=== PATIENT | male | born 1980 | race Caucasian/White ===

== ENCOUNTER 2020-04-24 13:10 | Inpatient (IN) | payer MEDICAID, SELFPAY ==
[2020-04-24 13:11] VITALS: BP 117/69; PULSE 115; RESP 22; TEMP 36.6; O2SAT 100; BMI 20.5
--- NOTE | 2020-04-24 13:21 | ED.DCSUM_ITS ---
History of Present Illness Chief Complaint: Substance Abuse Informant: Patient Narrative: Patient presents with EMS and police secondary to withdrawal. He admits to using fentanyl, heroin, and benzos. Last use was last evening. Patient reports feeling anxious and nauseated. He is interested in a detox program. He states it has been a long time since he has been through detox. He does admit to having seizures with previous withdrawal. - Past Medical History (1) Substance abuse Status: Deleted Past Medical History - Allergies and Home Meds Allergies/Adverse Reactions: Allergies No Known Allergies Allergy (Verified 04/24/20 13:13) Prior records reviewed: Yes Smoking Status: Current every day smoker Drugs: Heroin, - - Fentanyl, benzodiazepines - Family History Maternal Family History: Reports: No pertinent history Paternal Family History: Reports: No pertinent history Review of Systems General: Denies: Chills Eyes: Denies: Visual changes - bilaterally ENT: Denies: Bilateral ear pain Cardiovascular: Reports: Palpitations Respiratory: Reports: Dyspnea Gastrointestinal: Reports: Nausea Musculoskeletal: Denies: Extremity Pain Skin: Denies: Abscess Psych: Reports: Anxiety Physical Exam Vital Signs/Narrative: Vital Signs Temp Pulse Resp BP Pulse Ox 04/24/20 13:11 97.9 F 115 H 22 H 117/69 100 Inital Vital Signs reviewed: Yes General: Well nourished, Well developed Head: Normocephalic ENT: Moist mucous membranes Cardiovascular: Tachycardia Respiratory: No distress, CTA bilaterally Abdomen: Soft, Tender - Mild diffuse tenderness palpation., Hypoactive bowel sounds. Negative for: Guarding, Rebound tenderness Extremities: Nontender Skin: Normal color Neurological: Alert, - - No focal neurologic deficits. Psychological: - - Anxious and agitated Diagnostic/Tx/Re-eval Laboratory Results 04/24/20 04/24/20 04/24/20 13:35 13:35 13:35 WBC 7.9 RBC 5.33 Hgb 15.0 Hct 46.1 MCV 86.5 MCH 28.1 MCHC 32.5 RDW Std Deviation 38.0 RDW Coeff of Mary 12.2 Plt Count 300 MPV 9.8 Immature Gran % (Auto) 0.300 Neut % (Auto) 80.8 H Lymph % (Auto) 12.8 L [place] % (Auto) 5.8 Eos % (Auto) 0.0 Baso % (Auto) 0.3 Absolute Neuts (auto) 6.4 Absolute Lymphs (auto) 1.01 Nucleated RBC % 0 Sodium 135 L Potassium 4.5 Chloride 106 Carbon Dioxide 22.0 Anion Gap 7 BUN 19 H Creatinine 0.88 Estim Creat Clear Calc 104.32 Est GFR (MDRD) Af Amer 123 Est GFR (MDRD) Non-Af 102 BUN/Creatinine Ratio 21.5 H Glucose 97 Calcium 9.0 Total Bilirubin 1.20 H AST 37 ALT 46 Alkaline Phosphatase 126 H Total Protein 8.8 H Albumin 3.8 Globulin 5.0 H Albumin/Globulin Ratio 0.8 L Ethyl Alcohol < 3.0 - Medical Decision Making Patient was given 1 mg of IV Ativan. He has been stable while here the emergency room. He did agree to terms of the detox program. I spoke with Dr. Price patient be admitted to the floor. ED Disposition - Plan for ED Patient: Disposition: Acute Care [facility] Diagnosis: Desire for detoxification
[2020-04-24] MEDS: Ondansetron 4 MG/2 ML Vial IV (13:35)
[2020-04-24] MEDS: 0.9% Normal Saline 1,000 ML 999 ML IV (13:35)
[2020-04-24] MEDS: LORazepam 2 MG/ML Syringe 1 MG IV (13:40)
[2020-04-24 13:43] LABS: Absolute Lymphocyte Count 1.01 X10^3/uL (0.83-4.51); Absolute Neutrophil Count 6.4 X10^3/uL (2.0-7.7); Basophil# 0.02 X10^3/uL; Basophil% 0.3 % (0-1); Hematocrit 46.1 % (40-54); Lymphocyte # 1.01 X10^3/ul (4.0); Lymphocyte % 12.8 % (19-41); Mean Corp Hgb Conc 32.5 g/dL (32-36); Mean Corpuscular Hgb 28.1 pg (27.0-32.0); Mean Corpuscular Volume 86.5 fL (80-94); Mean Platelet Vol. 9.8 fl (6.2-12.0); Monocyte# 0.46 X10^3/uL; Monocyte% 5.8 % (0-10); NRBC Flagged by Analyzer 0 % (0-5); Neutrophil # 6.37 X10^3/uL (2.7-7.7); Neutrophil % 80.8 % (47-70); Platelet Count 300 K/mm3 (150-450); RBC Distribution Width CV 12.2 % (11.6-14.6); Red Blood Count 5.33 M/mm3 (4.6-6.2); White Blood Count 7.9 K/mm3 (4.4-11.0)
[2020-04-24 13:59] LABS: ALB/GLOB Ratio 0.8 RATIO (0.9-2.4); AST(SGOT) 37 U/L (15-37); Alanine Aminotransfer ALT/SGPT 46 U/L (16-61); Albumin, Serum 3.8 g/dL (3.2-5.0); Alkaline Phosphatase 126 U/L (45-117); Anion Gap 7 (5-15); BUN 19 mg/dL (7-18); BUN/Creat Ratio 21.5 RATIO (10-20); Chloride 106 mmol/L (98-107); Creatinine, Serum 0.88 mg/dL (0.70-1.30); EST Glomerular Filtration Rate 102 mL/min (>60); Est Glom Filt Rate - Afr Amer 123 mL/min (>60); Estimated Creatinine Clearance 104.32 ml/min; Glucose 97 mg/dL (74-106); Potassium 4.5 mmol/L (3.5-5.1); Protein, Total 8.8 g/dL (6.4-8.2); Sodium Level 135 mmol/L (136-145)
[2020-04-24 14:13] LABS: Alcohol, Blood (Medical)-Serum < 3.0 mg/dL
--- NOTE | 2020-04-24 15:06 | HP.PCM_ITS ---
Problem List (1) Acute benzodiazepine withdrawal Status: Acute (2) Acute opioid withdrawal Status: Acute (3) Acute alcohol withdrawal Status: Acute (4) Benzodiazepine abuse Status: Chronic (5) Tobacco abuse Status: Chronic (6) Alcohol abuse Status: Chronic (7) Opioid abuse Status: Chronic (8) Polysubstance abuse Status: Chronic History of Present Illness Date of Admission: 04/24/20 Chief Complaint: Acute opioid, benzodiazepines and alcohol withdrawal. The patient is a 39 year old M with past medical history as mentioned above presented to the emergency room by police due to acute withdrawal symptoms and he interested and admission for medical stabilization. At this time, patient received Ativan in the ED and he has been falling asleep very quick. After awaking him up multiple times, he was able to provide consistent history. He mentioned that he has been using IV heroin and fentanyl daily over the last 8 months and last use was last night around midnight. He stated that he takes Xanax as well, takes 2 mg pills 3-4 times a day totaling 6 to 8 mg and this has been going on for 8 months as well. He mentioned that he started drinking alcohol over the last month, he drinks every day over the last month, he drinks around 20-24 beers a day. At this time, his complaints are being very anxious, restless. He complained of abdominal cramps with diarrhea over the last couple of days. He complained of shortness of breath as well. In the emergency department, he was afebrile, tachycardic, blood pressure stable, pulse ox was 100% on room air. His routine blood work was unremarkable. LFT was unremarkable. Blood alcohol level is less than 3. Urine drug screen is pending at this time. He is being admitted for acute opioid, benzodiazepines and alcohol withdrawal. Past Medical History Past Medical History (Chronic Problems): Chronic Problems Benzodiazepine abuse (Chronic) Tobacco abuse (Chronic) Alcohol abuse (Chronic) Opioid abuse (Chronic) Polysubstance abuse (Chronic) Allergies No Known Allergies Allergy (Verified 04/24/20 13:13) Surgical History: no surgical history Psychiatric History: No pertinent psych hx Lives: Alone Smoking Status: Current every day smoker Tobacco Use: Cigarettes Alcohol: Heavy Drugs: Heroin, - - Fentanyl, benzodiazepines. - *Family History Maternal History Items: No pertinent history Paternal History Items: No pertinent history Review of Systems Constitutional: Reports: Anorexia. Denies: Chills, Fever, Weakness Eyes: Denies: Blurred vision, Double vision, Drainage, Redness HEENT: Denies: Difficulty Hearing, Ear Pain, Eye Pain, Nasal Congestion, Sore Throat Cardiovascular: Denies: Chest Pain, Chest Tightness, Heaviness, Light He adedness, Palpitations, Syncope Respiratory: Reports: Shortness of Breath. Denies: Cough, Pleuritic Pain, Sputum production, Wheezing Gastrointestinal: Reports: Abdominal Pain, Diarrhea. Denies: Constipation, Nausea, Vomiting Genitourinary: Denies: Dysuria, Frequency, Hematuria Musculoskeletal: Denies: Arm Pain, Back Pain, Foot Pain Skin: Denies: Dryness, Rash Neurological: Denies: Balance problems, Double vision, Change in Speech, Slurred speech, Confusion, Headaches, Numbness Psychiatric: Denies: Anxiety, Depression Endocrine: Denies: Change in Body Habitus, Polydipsia, Polyuria VTE Information - Inpt Only VTE Present on Admission: No VTE Mechan Device Prophylaxis: None VTE Pharm Prophylaxis ordered?: No Patient Problems: Active and Suspected Problems Acute benzodiazepine withdrawal (Acute) Acute opioid withdrawal (Acute) Acute alcohol withdrawal (Acute) - Physical Exam Vitals/I&O's: Vital Signs Temp Pulse Resp BP Pulse Ox 97.9 F 115 H 22 H 117/69 100 04/24/20 13:11 04/24/20 13:11 04/24/20 13:11 04/24/20 13:11 04/24/20 13:11 Oxygen Delivery Method Room Air Weight: 142 lb 13.753 oz Body Mass Index (BMI) 20.5 General: Alert, Oriented x3, Cooperative, - - Falls asleep frequently. HEENT: Atraumatic, PERRLA, EOMI, Normocephalic Oral: Moist Mucosa, No Gingival or Mucosal Lesions/ Ulcerations Neck: Supple, No JVD, Negative Carotid Bruits, Trachea Midline, Thyroid Normal Size and Texture Lungs: Clear to auscultation, No rhonchi, No wheeze, No rales Cardiovascular: Regular rate, Regular Rhythm, Normal S1, Normal S2, PMI Normal Abdomen: Bowel Sounds Present, Soft, Non Tender, Non-Distended, No Hepato- splenomegaly Extremities: No clubbing, No cyanosis, No edema Skin: No rashes, No breakdown, - - Left cheek hemangioma. Lymphatic: No Cervical, Supraclavicular, or Inguinal Adenopathy Neurological: Cranial nerves II-XII grossly intact, Motor Exam 5/5 strength throughout Psych/Mental Status: Anxious, Restless Laboratory Results 04/24/20 13:35: WBC 7.9, RBC 5.33, Hgb 15.0, Hct 46.1, MCV 86.5, MCH 28.1, MCHC 32.5, RDW Std Deviation 38.0, RDW Coeff of Mary 12.2, Plt Count 300, MPV 9.8, Immature Gran % (Auto) 0.300, Neut % (Auto) 80.8 H, Lymph % (Auto) 12.8 L, [place] % (Auto) 5.8, Eos % (Auto) 0.0, Baso % (Auto) 0.3, Absolute Neuts (auto) 6.4, Absolute Lymphs (auto) 1.01, Nucleated RBC % 0 04/24/20 13:35: Sodium 135 L, Potassium 4.5, Chloride 106, Carbon Dioxide 22.0, Anion Gap 7, BUN 19 H, Creatinine 0.88, Estim Creat Clear Calc 104.32, Est GFR (MDRD) Af Amer 123, Est GFR (MDRD) Non-Af 102, BUN/Creatinine Ratio 21.5 H, Glucose 97, Calcium 9.0, Total Bilirubin 1.20 H, AST 37, ALT 46, Alkaline Phosphatase 126 H, Total Protein 8.8 H, Albumin 3.8, Globulin 5.0 H, Albumin/ Globulin Ratio 0.8 L 04/24/20 13:35: Ethyl Alcohol < 3.0 Assessment/Plan All Active Problems Acute benzodiazepine withdrawal (Acute) Acute opioid withdrawal (Acute) Acute alcohol withdrawal (Acute) This is a 39 years old male patient presented to the emergency room by police because of acute withdrawal symptoms due to abusing opioids, benzodiazepines and alcohol, was interested in admission for medical stabilization and he is being admitted for treatment. #1 acute opioid withdrawal: Patient stated that he uses IV heroin and fentanyl over the last 8 months, daily use, last use was last night around midnight. Routine blood work reviewed. Urine drug screen is pending. Blood alcohol level less than 3. Apart from mild tachycardia, other vital signs are stable. [facility] initiate opioid withdrawal protocol with tapering Subutex, PRN Catapres, Bentyl, Neurontin, Vistaril, Imodium, Zofran and trazodone, notify 180 program, routine EKG because patient was tachycardic in the ED. #2 acute alcohol withdrawal: Patient has been drinking 20-24 beers a day for the last month. Blood alcohol level was less than 3. Plan: Initiate Ativan taper, thiamine, folic acid, multivitamins. #3 acute benzodiazepine withdrawal: Patient has been using Xanax 2 mg pills, takes 2 to 3 pills a day and has been doing this for 8 months. Plan as above, Ativan taper. #4 tobacco abuse: NicoDerm patch. #5 DVT prophylaxis: Low risk patient, no prophylaxis indicated. This note was generated with [employer] dictation software. It may contain incorrect words, spelling, and punctuation that were not noted in checking the note before signing. Inpatient E&M: 46438 Init Hosp L2
[2020-04-24 15:19] VITALS: BP 122/89; PULSE 102; RESP 16; TEMP 36.9; O2SAT 99
--- NOTE | 2020-04-24 15:43 | EKG12_ITS ---
Test Reason : TACHY Blood Pressure : / mmHG Vent. Rate : 087 BPM Atrial Rate : 087 BPM P-R Int : 148 ms QRS Dur : 086 ms QT Int : 388 ms P-R-T Axes : 056 067 064 degrees QTc Int : 466 ms Normal sinus rhythm with sinus arrhythmia Normal ECG No previous ECGs available Confirmed by KAE MORALES, RAFFY ([id number]), film or videotape editor JESUS ALBERTO PARKER ([id number]) on 05/02/2020 1:22:48 PM Referred By: TUAN Confirmed By:RAFFY PAL MD
[2020-04-24 15:44] VITALS: BMI 21.1
[2020-04-24 16:04] VITALS: BP 127/86; PULSE 106; RESP 20; TEMP 37; O2SAT 100
--- NOTE | 2020-04-24 16:17 | NURSING ---
pt very lethargic and difficult to assess due to frequently falling asleep. when awake, pt does complain of many symptoms and is very restless in bed and shivering frequently. pt asking for cell phone and reminded of cell phone policy and [employer] agreement that pt signed. bed exit applied due to impulsive movements.
[2020-04-24] MEDS: Dicyclomine 10 MG Capsule 20 MG PO (16:35)
[2020-04-24] MEDS: LORazepam 1 MG Tablet 2 MG PO ×2 (16:35→20:40)
[2020-04-24] MEDS: hydrOXYzine PAM 25 MG Capsule 50 MG PO (16:35)
[2020-04-24] MEDS: Buprenorphine HCl 2 MG TAB.SUBL 4 MG SL (16:36)
[2020-04-24 18:22] VITALS: BP 115/85; PULSE 107; RESP 18; TEMP 36.9; O2SAT 97
[2020-04-24 20:31] VITALS: BP 121/72; PULSE 93; RESP 20; TEMP 36.5; O2SAT 100
[2020-04-24] MEDS: cloNIDine HCl 0.1 MG Tablet PO (20:40)
[2020-04-24] MEDS: traZODone 100 MG Tablet PO (20:40)
[2020-04-25] VITALS: BP 110/69; PULSE 75; RESP 18; TEMP 36.4; O2SAT 100
[2020-04-25] MEDS: LORazepam 1 MG Tablet 2 MG PO (00:36)
[2020-04-25] MEDS: Buprenorphine HCl 2 MG TAB.SUBL 4 MG SL (00:37)
[2020-04-25 04:22] VITALS: BP 108/77; PULSE 74; RESP 16; TEMP 36.7; O2SAT 100
--- NOTE | 2020-04-25 04:32 | NURSING ---
Pt resting in bed snoring. No distress noted. Opens eyes when spoke to but falls back to sleep quickly. very drowsy.
--- NOTE | 2020-04-25 08:19 | PCM.PROGNOTE ---
Patient Problems: Active and Suspected Problems Acute benzodiazepine withdrawal (Acute) Acute opioid withdrawal (Acute) Acute alcohol withdrawal (Acute) Subjective: Chief complaint: Follow-up after admission for acute opioid, benzodiazepines and alcohol withdrawal. Patient seen and examined. No acute events overnight. He mentioned that he slept okay last night but still having body aches and restlessness. Still having some abdominal cramps and diarrhea. His vital signs are stable. - Physical Exam Vitals/I&O's: Vital Signs Temp Pulse Resp BP Pulse Ox 98.0 F 74 16 108/77 100 04/25/20 04:22 04/25/20 04:22 04/25/20 04:22 04/25/20 04:22 04/25/20 04:22 Oxygen Delivery Method Room Air Weight: 142 lb 14.4 oz Body Mass Index (BMI) 21.1 Intake and Output for Last 24 Hours 04/23/20 04/24/20 04/25/20 23:59 23:59 23:59 Intake Total 1000 / 1240 240 / 240 Output Total 0 / 0 Balance 1000 / 1240 240 / 240 General: Alert, Oriented x3, Cooperative, No apparent distress HEENT: Atraumatic, PERRLA, EOMI, Normocephalic Oral: Moist Mucosa, No Gingival or Mucosal Lesions/ Ulcerations Neck: Supple, No JVD, Negative Carotid Bruits, Trachea Midline, Thyroid Normal Size and Texture Lungs: Clear to auscultation, Normal air movement, No rhonchi, No wheeze, No rales Cardiovascular: Regular rate, Regular Rhythm, Normal S1, Normal S2, PMI Normal Abdomen: Bowel Sounds Present, Soft, Non Tender, Non-Distended, No Hepato-splenomegaly Extremities: No clubbing, No cyanosis, No edema Skin: No rashes, No breakdown Lymphatic: No Cervical, Supraclavicular, or Inguinal Adenopathy Neurological: Cranial nerves II-XII grossly intact, Neuro grossly intact Psych/Mental Status: Normal Affect, Anxious Laboratory Results 04/24/20 13:35: WBC 7.9, RBC 5.33, Hgb 15.0, Hct 46.1, MCV 86.5, MCH 28.1, MCHC 32.5, RDW Std Deviation 38.0, RDW Coeff of Mary 12.2, Plt Count 300, MPV 9.8, Immature Gran % (Auto) 0.300, Neut % (Auto) 80.8 H, Lymph % (Auto) 12.8 L, [place] % (Auto) 5.8, Eos % (Auto) 0.0, Baso % (Auto) 0.3, Absolute Neuts (auto) 6.4, Absolute Lymphs (auto) 1.01, Nucleated RBC % 0 04/24/20 13:35: Sodium 135 L, Potassium 4.5, Chloride 106, Carbon Dioxide 22.0, Anion Gap 7, BUN 19 H, Creatinine 0.88, Estim Creat Clear Calc 104.32, Est GFR (MDRD) Af Amer 123, Est GFR (MDRD) Non-Af 102, BUN/Creatinine Ratio 21.5 H, Glucose 97, Calcium 9.0, Total Bilirubin 1.20 H, AST 37, ALT 46, Alkaline Phosphatase 126 H, Total Protein 8.8 H, Albumin 3.8, Globulin 5.0 H, Albumin/Globulin Ratio 0.8 L 04/24/20 13:35: Ethyl Alcohol < 3.0 Current Medications Acetaminophen (Tylenol) 500 mg PO Q4H PRN PRN PRN Reason: Temp > 100.4 F Buprenorphine HCl (Buprenorphine Hcl) 4 mg SL Q8H SIL; Taper Stop: 04/27/20 16:29 Last Admin: 04/25/20 00:37 Dose: 4 mg Documented by: Clonidine (Catapres) 0.1 mg PO Q8H PRN PRN PRN Reason: RESTLESSNESS Last Admin: 04/24/20 20:40 Dose: 0.1 mg Documented by: Dicyclomine HCl (Bentyl) 20 mg PO Q6H PRN PRN PRN Reason: abdominal discomfort Last Admin: 04/24/20 16:35 Dose: 20 mg Documented by: Folic Acid (Folic Acid) 1 mg PO DAILY@0800 SIL Gabapentin (Neurontin) 300 mg PO Q8H PRN PRN PRN Reason: moderate to severe anxiety Hydroxyzine Pamoate (Vistaril Pamoate Capsule) 50 mg PO Q4H PRN PRN PRN Reason: mild anxiety Last Admin: 04/24/20 16:35 Dose: 50 mg Documented by: Sodium Chloride () 250 mls @ 15 mls/hr IV .[id number] PRN PRN Reason: Saline Flush Sodium Chloride () 250 mls @ 15 mls/hr IV .[id number] PRN PRN Reason: Additional IVPB Infusion Loperamide HCl (Imodium) 2 mg PO Q4H PRN PRN PRN Reason: LOOSE STOOLS Lorazepam (Ativan) 2 mg PO Q4H SIL; Taper Stop: 04/28/20 23:59 Last Admin: 04/25/20 04:31 Dose: Not Given Documented by: Multivitamins (Multivitamin) 1 tablet PO DAILYCM [facility] Nicotine (Nicoderm Cq (Pbkc)) 21 mg TRANSDERM. DAILY SIL Last Admin: 04/24/20 16:35 Dose: 21 mg Documented by: Nutritional Formula (Lactose Free) (Ensure Enlive) 120 ml PO 4X/DAY [facility] Last Admin: 04/24/20 20:40 Dose: Not Given Documented by: Ondansetron HCl (Zofran) 8 mg PO Q8H PRN PRN PRN Reason: NAUSEA Sodium Chloride () 10 - 40 ml IV UD PRN PRN Reason: SALINE FLUSH Thiamine HCl (Vitamin B1) 100 mg PO DAILYCM SIL Trazodone HCl (Desyrel) 100 mg PO QHS PRN PRN Reason: INSOMNIA Last Admin: 04/24/20 20:40 Dose: 100 mg Documented by: Medical Necessity - Tobacco Use Smoking Status: Current every day smoker Tobacco Use: Cigarettes Assessment/Plan All Active Problems Acute benzodiazepine withdrawal (Acute) Acute opioid withdrawal (Acute) Acute alcohol withdrawal (Acute) This is a 39 years old male patient presented to the emergency room by police because of acute withdrawal symptoms due to abusing opioids, benzodiazepines and alcohol, was interested in admission for medical stabilization and he is being admitted for treatment. #1 acute opioid withdrawal: He is on tapering Subutex, PRN Bentyl, Catapres, Neurontin, Vistaril, Imodium, Zofran, trazodone. He is still symptomatic but able to sleep last night, still complaining of anxiety, restlessness and body aches. EKG reviewed was unremarkable. Patient still having active withdrawal symptoms and he is appropriate for high-level care inpatient treatment at this time. Plan to potential treatment. #2 acute alcohol withdrawal: He is on Ativan taper, folic acid, thiamine and multivitamin supplements. LFT was unremarkable. Blood alcohol level was less than 3. Plan to continue same treatment. #3 acute benzodiazepine withdrawal: Patient has been using Xanax 2 mg pills, takes 2 to 3 pills a day and has been doing this for 8 months. He is on Ativan taper as above. #4 tobacco abuse: NicoDerm patch. #5 DVT prophylaxis: Low risk patient, no prophylaxis indicated. This note was generated with [employer] dictation software. It may contain incorrect words, spelling, and punctuation that were not noted in checking the note before signing. Inpatient E&M: 04408 Subs Hosp L2
--- NOTE | 2020-04-25 08:55 | CASEMGMT ---
Amparo Matamoros from [facility] will be here this afternoon to see pt. FRANCO Jacobson
[2020-04-25 08:57] VITALS: BP 118/83; PULSE 84; RESP 16; TEMP 36.8; O2SAT 98
--- NOTE | 2020-04-25 11:06 | DS.PCM_ITS ---
Discharge Date and Diagnosis Date of Admission: 04/24/20 Date of Discharge: 04/25/20 - Primary Discharge Diagnosis Acute Problems: #1 acute opioid withdrawal. #2 acute alcohol withdrawal. #3 acute benzodiazepine withdrawal. #4 left the hospital AGAINST MEDICAL ADVICE - Secondary Discharge Diagnosis Chronic Problems: Chronic Problems Benzodiazepine abuse (Chronic) Tobacco abuse (Chronic) Alcohol abuse (Chronic) Opioid abuse (Chronic) Polysubstance abuse (Chronic) Hospital Course and Treatment Operations: None Procedures: None Summary of Care Provided: The patient is a 39 year old M admitted for opioid, alcohol and benzodiazepine withdrawal for medical stabilization. His routine blood work was unremarkable. LFT was unremarkable. Blood alcohol level was less than 3. Patient showed interest for admission for medical stabilization due to polysubstance abuse. He was admitted and started on Subutex taper as well as Ativan taper, started on PRN Catapres, Bentyl, methocarbamol, Zofran, Imodium, Neurontin and trazodone. His EKG showed normal sinus rhythm without evidence of acute ischemic changes. Around 1030 this morning, patient left the hospital AGAINST MEDICAL ADVICE. - Physical Exam Vitals/I&O's: Vital Signs Temp Pulse Resp BP Pulse Ox 98.2 F 84 16 118/83 H 98 04/25/20 08:57 04/25/20 08:57 04/25/20 08:57 04/25/20 08:57 04/25/20 08:57 Oxygen Delivery Method Room Air Weight: 142 lb 13.753 oz Body Mass Index (BMI) 21.1 Intake and Output for Last 24 Hours 04/23/20 04/24/20 04/25/20 23:59 23:59 23:59 Intake Total 1000 / 1240 240 / 240 Output Total 0 / 0 Balance 1000 / 1240 240 / 240 General: Alert, Oriented x3, Cooperative, No apparent distress HEENT: Atraumatic, PERRLA, EOMI Oral: Moist Mucosa, No Gingival or Mucosal Lesions/ Ulcerations Neck: Supple, No JVD, Negative Carotid Bruits, Trachea Midline, Thyroid Normal Size and Texture Lungs: Clear to auscultation, Normal air movement, No rhonchi, No wheeze, No rales Cardiovascular: Regular rate, Regular Rhythm, Normal S1, Normal S2, PMI Normal Abdomen: Bowel Sounds Present, Soft, Non Tender, Non-Distended, No Hepato- splenomegaly Extremities: No clubbing, No cyanosis, No edema Skin: No rashes, No breakdown Lymphatic: No Cervical, Supraclavicular, or Inguinal Adenopathy Neurological: Cranial nerves II-XII grossly intact, Neuro grossly intact Psych/Mental Status: Normal Affect, Anxious Laboratory Results 04/24/20 13:35: WBC 7.9, RBC 5.33, Hgb 15.0, Hct 46.1, MCV 86.5, MCH 28.1, MCHC 32.5, RDW Std Deviation 38.0, RDW Coeff of Mary 12.2, Plt Count 300, MPV 9.8, Immature Gran % (Auto) 0.300, Neut % (Auto) 80.8 H, Lymph % (Auto) 12.8 L, [place] % (Auto) 5.8, Eos % (Auto) 0.0, Baso % (Auto) 0.3, Absolute Neuts (auto) 6.4, Absolute Lymphs (auto) 1.01, Nucleated RBC % 0 04/24/20 13:35: Sodium 135 L, Potassium 4.5, Chloride 106, Carbon Dioxide 22.0, Anion Gap 7, BUN 19 H, Creatinine 0.88, Estim Creat Clear Calc 104.32, Est GFR (MDRD) Af Amer 123, Est GFR (MDRD) Non-Af 102, BUN/Creatinine Ratio 21.5 H, Glucose 97, Calcium 9.0, Total Bilirubin 1.20 H, AST 37, ALT 46, Alkaline Phosphatase 126 H, Total Protein 8.8 H, Albumin 3.8, Globulin 5.0 H, Albumin/Globulin Ratio 0.8 L 04/24/20 13:35: Ethyl Alcohol < 3.0 Primary Care Physician: NOT,DEFINED [NON-STAFF] - Disposition: Against Medical Advice Minutes spent on discharge:: 24 Patient Condition:: Stable Medical Necessity - Tobacco Use Smoking Status: Current every day smoker Tobacco Use: Cigarettes Meaningful Use Info Meaningful Use Diagnoses (Choose all that apply): None applicable Inpatient E&M: 75417 Disch Hosp
--- NOTE | 2020-04-26 08:19 | NURSING ---
late entry - on @10am. bed exit alarming - upon entering the room pt states he wants his papers and he needs to leave he has shit to do. Asked if there was anything we could do pt states no i just need the papers informed Migel PATEL about AMA - pts boxes were open and left to get dressed. AMA papers were signed and pt left - directions given to [facility] and pt left @ [id number]
== END 2020-04-25 10:20 | disposition left against medical advice (07) | DRG 770 ==
LOC: ED 14:55 → MS3 17:23
PROVIDERS: Admitting Provider Hospitalist; Emergency Provider Emergency Medicine; Visit Provider Hospitalist
DX: F11.23 Opioid dependence with withdrawal (principal); F13.239 Sedative, hypnotic or anxiolytic dependence with withdrawal, unspecified; F10.239 Alcohol dependence with withdrawal, unspecified; F17.210 Nicotine dependence, cigarettes, uncomplicated
CPT/HCPCS: 80053; 80320; 85025; 93005; 97802; 99285; J7030; A4216; G0480; J2405